=== PATIENT | female | born 1985 | race Caucasian/White ===

== ENCOUNTER 2019-11-24 05:40 | Inpatient (IN) | payer OTHER ==
[2019-11-24] MEDS ORDERED: AMPICILLIN - 2 GM in SODIUM CHLORIDE 100 ML IVPB ONE (06:32)
[2019-11-24] MEDS ORDERED: AMPICILLIN SODIUM 2 GM VIAL ONE (06:33)
[2019-11-24 06:34] LABS: BASO % 0.2 % (0-2.0); HEMATOCRIT 39.1 % (32.4-45.2); LYMPH % 7.9 % (8-40); MCH 30.3 pg (25.7-33.7); MCHC 33.3 g/dl (32.0-36.0); MEAN PLT VOLUME 8.7 fl (7.5-11.1); MONO % 2.4 % (3.8-10.2); NEUT % 89.5 % (42.8-82.8); PLATELET COUNT 363 K/MM3 (134-434); RBC 4.29 M/mm3 (3.60-5.2); RDW 16.8 % (11.6-15.6)
--- NOTE | 2019-11-24 06:36 | HP ---
Past Medical History - Admission Chief Complaint: Contractions History of Present Illness: 34yo @ 39.6wks by LMP/sono, BASSEM 11/25/19 here with contractions, LOF No VB. +FM. 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: Alzheimer's, CVA, Dementia, Migraine, Multiple Sclerosis, Peripheral Neuropathy, Parkinson's, Seizure, Syncope, TIA, Vertigo, Other Cardiovascular: No: AFIB, Aneurysm, Aortic Insufficiency, Aortic Stenosis, CAD, CHF, Deep Vein Thrombosis, HTN, Hyperlipdemia, LA, Mitral Insufficiency, Mitral Stenosis, Murmur, Pulmonary Hypertension, Other Pulmonary: No: Asthma, Bronchitis, Cancer, COPD, O2 Dependent, Pneumonia, Previously Intubated, Pulmonary Embolus, Pulmonary Fibrosis, Sleep Apnea, Other Gastrointestinal: No: Ascites, Cancer, Constipation, Crohn's Disease, Diverticulitis, Diverticulosis, Esophageal Varices, Gastritis, GERD, GI Bleed, Hemorrhoids, Hiatal Hernia, Inflamatory Bowel Disease, Irritable Bowel Disease, Pancreatitis, Peptic Ulcer Disease, Ulcerative Colitis, Other Hepatobiliary: No: Cirrhosis, Cholelithiasis, Cholecystitis, Choledocholithiasis, Hepatitis A, Hepatitis B, Hepatitis C, Other Reproductive: No: Ectopic , Endometriosis, Fibroids, PID, Polycystic Ovary Syndrome, Postmenopausal, Other ...: 3 ...Para: 2 ...Term: 2 ...: 0 ...Spon : 0 ...Induced : 0 ...Living Children: 2 ... Weeks Gestation by Dates: 39.6 ...EDC by Dates: 11/25/19 ...EDC by Sono: 11/25/19 Heme/Onc: No: Anemia, B12 Deficiency, Bleeding Disorder, Cancer, Current Chemotherapy, Current Radiation Therapy, Hemochromatosis, Hypercoaguable State, Myeloproliferative Synd, Sickle Cell Disease, Sickle Cell Trait, Thrombocytopenia, Other Infectious Disease: No: AIDS, C-Diff, Herpes Zoster, HIV, MRSA, STD's, Tuberculosis, VREF, Other Psych: No: Addictions, Anxiety, Bipolar, Depression, Panic, Psychosis, Schizophrenia, Other Musculoskeletal: No: Bursitis, Chronic low back pain, Hemiparesis, Hemiplegia, Osteoarthritis, Paraplegia, Other Rheumatology: No: Fibromyalgia, Gout, Lupus, Rheumatoid Arthritis, Sarcoidosis, Vasculitis, Other ENT: No: Allergic Rhinitis, Sinusitis, Other Dermatology: No: Basal Cell, Cellulitis, Eczema, Melanoma, Psoriasis, Squamous Cell, Other - Past Surgical History Past Surgical History: Yes: None Hx Myomectomy: No Hx Transabdominal Cerclage: No - Smoking History Smoking history: Current every day smoker Have you smoked in the past 12 months: No - Alcohol/Substance Use Hx Alcohol Use: No History of Substance Use: reports: None - Social History Usual Living Arrangement: Yes: With Spouse Do you think of yourself as: Straight/Heterosexual ADL: Independent History of Recent Travel: No Home Medications - Allergies Allergies/Adverse Reactions: Allergies Allergy/AdvReac Type Severity Reaction Status Date / Time No Known Allergies Allergy Verified 11/23/19 18:38 - Home Medications Home Medications: Ambulatory Orders Vitamins (Sjr) - 1 tab PO DAILY 11/23/19 Physical Exam - Maternity Constitutional: Yes: Well Nourished, No Distress, Calm - Abdominal Exam/OB Number of Fetuses: Single Presentation: Vertex Contractions: Yes Regularity: Regular Intensity: Mod/Strong Monitor Mode: External Heart Rate Location: [facility] Category: I Accelerations: Non-Uniform Decelerations: None - Vaginal Exam/OB Vaginal Bleeding: No Speculum Exam: No Dilatation (cm): 9.5 Effacement (%): 100 Amniotic Membrane Status: Ruptured Nitrazine Test: Positive Amniotic Fluid: Yes: Clear Presentation: Vertex/Position - Physical Exam Edema: No Imaging - Results Ultrasound: Report Reviewed Problem List - Problems (1) Precipitous delivery Code(s): O62.3 - PRECIPITATE LABOR Assessment/Plan 34yo @ 39.6wks here in labor Admit to L&D NPO, IVFs Amp for GBS positive, will not be sufficient Anticipate DICKSON Munoz MD
[2019-11-24] MEDS ORDERED: DEXTROSE 5%-LACTATED RINGERS 1,000 ML IV SCH (06:45)
[2019-11-24 06:52] LABS: INR 0.93 (0.83-1.09)
[2019-11-24] MEDS ORDERED: OXYTOCIN 30 UNITS in 0.9% NS 30 UNIT/500 ML INFUS.BAG IVPB ONE (06:57)
[2019-11-24] MEDS ORDERED: ELECTROLYTE-148 SOLN 1,000 ML IV SCH (07:00)
--- NOTE | 2019-11-24 07:01 | PN ---
Progress Note, Labor Vaginal Exam #1 Labor Exam Date: 11/24/19 Labor Exam Time: 07:00 Heart Rate (range): Cat I Dilatation: 9 Effacement (%): 100 Amniotic Membrane Status: Ruptured Presentation: Vertex/Position Station: -1 Remarks: Pt comfortable Contractions over 5mins apart, will start pitocin Anticipate DICKSON Munoz MD
[2019-11-24 07:04] VITALS: BMI 37.8
[2019-11-24 07:14] LABS: BLOOD UREA NITROGEN 7.1 mg/dL (7-18); CALCIUM 9.6 mg/dL (8.5-10.1); CREATININE 0.7 mg/dL (0.55-1.3); POTASSIUM 4.1 mmol/L (3.5-5.1)
[2019-11-24] MEDS ORDERED: OXYTOCIN 30 UNITS in 0.9% NS 30 UNIT/500 ML INFUS.BAG IVPB SCH (07:15)
[2019-11-24] MEDS ORDERED: OXYTOCIN 20 UNITS in 0.9% NS 20 UNIT/1,000 ML INFUS.BAG IV ONE ×2 (08:38→12:31)
[2019-11-24] MEDS: OXYTOCIN 20 UNITS in 0.9% NS 20 UNIT/1,000 ML INFUS.BAG IV SCH ×2 (08:43→12:35)
[2019-11-24] MEDS ORDERED: LIDOCAINE HCL 1% PRESERVATIVE FREE - 30ML VIAL ONE (08:47)
[2019-11-24] MEDS ORDERED: METHYLERGONOVINE MALEATE 0.2 MG/1 ML AMP IM PRN (09:02)
[2019-11-24] MEDS ORDERED: ACETAMINOPHEN 325 MG TABLET (FP) PO PRN (09:02)
[2019-11-24] MEDS ORDERED: BENZOCAINE 28 GM HEMORRHOIDAL OINTMENT TP PRN (09:02)
[2019-11-24] MEDS ORDERED: WITCH HAZEL 50% (TUCKS) 40 PAD/JAR PAD TP PRN (09:02)
[2019-11-24] MEDS ORDERED: BENZOCAINE 20% 57 GM BOTTLE TP PRN (09:02)
[2019-11-24] MEDS ORDERED: BISACODYL 10 MG SUPP.RECT RC PRN (09:02)
[2019-11-24] MEDS ORDERED: IBUPROFEN 600 MG TABLET (FP) PO PRN (09:02)
--- NOTE | 2019-11-24 09:02 | PN ---
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 39 weeks. No anesthesia. Spontaneous delivery of anterior shoulder and body. Nuchal x 1, delivered through and then reduced. Meconium noted just prior to delivery of head. Infant placed on maternal abdomen; cord cut and clamped by provider. Infant handed off immediately to nursing staff. Weight pending. Apgars 7/9. Spontaneous delivery of intact placenta with 3VC. Fundus firm. First degree laceration repaired after 10cc !5 lidocaine local injected into area- repaired with 2-0 chromic. Hemostasis noted. Mother and baby doing well. EBL 250ml. Yomaira Munoz MD
[2019-11-24] MEDS ORDERED: IBUPROFEN 600 MG TABLET (FP) PO ONE (11:49)
[2019-11-24] MEDS ORDERED: ACETAMINOPHEN 325 MG TABLET (FP) ONE (11:49)
[2019-11-24] MEDS: PRENATAL VITAMINS W/ FOLIC ACID TABLET (FP) PO SCH (11:55)
[2019-11-25 08:54] VITALS: BP 110/71; PULSE 60; TEMP 97.6
[2019-11-25] MEDS: PRENATAL VITAMINS W/ FOLIC ACID TABLET (FP) PO SCH (09:22)
[2019-11-25 09:40] LABS: BASO % 0.5 % (0-2.0); HEMATOCRIT 38.4 % (32.4-45.2); HEMOGLOBIN 12.5 GM/dL (10.7-15.3); LYMPH % 30.4 % (8-40); MCH 30.3 pg (25.7-33.7); MCHC 32.7 g/dl (32.0-36.0); MEAN CELL VOLUME 92.7 fl (80-96); MEAN PLT VOLUME 8.4 fl (7.5-11.1); MONO % 6.4 % (3.8-10.2); NEUT % 61.7 % (42.8-82.8); PLATELET COUNT 348 K/MM3 (134-434); RBC 4.14 M/mm3 (3.60-5.2); RDW 17.1 % (11.6-15.6); WHITE BLOOD COUNT 14.2 K/mm3 (4.0-10.0)
--- NOTE | 2019-11-25 09:41 | PN ---
Post Progress Note - Subjective Subjective: Pain controlled. No fevers/chills. . Ambulating Type of Delivery: Vital Signs: Vital Signs Temperature 97.6 F 11/25/19 08:50 Pulse Rate 60 11/25/19 08:50 Respiratory Rate 18 11/25/19 08:50 Blood Pressure 110/71 11/25/19 08:50 O2 Sat by Pulse Oximetry (%) 98 11/24/19 22:00 Uterus: Yes: Fundus below umbilicus Abdomen/GI: Yes: Abdomen soft, Tolerating PO Lochia: Yes: Rubra Lochia, amount: Small Extremities: Yes: Calves non-tender Perineum: Yes: Laceration Activity: Ambulating - Labs Labs: CBC WBC 17.0 K/mm3 (4.0-10.0) H 11/24/19 06:15 RBC 4.29 M/mm3 (3.60-5.2) 11/24/19 06:15 Hgb 13.0 GM/dL (10.7-15.3) 11/24/19 06:15 Hct 39.1 % (32.4-45.2) 11/24/19 06:15 MCV 91.0 fl (80-96) 11/24/19 06:15 MCH 30.3 pg (25.7-33.7) 11/24/19 06:15 MCHC 33.3 g/dl (32.0-36.0) 11/24/19 06:15 RDW 16.8 % (11.6-15.6) H 11/24/19 06:15 Plt Count 363 K/MM3 (134-434) 11/24/19 06:15 MPV 8.7 fl (7.5-11.1) 11/24/19 06:15 Absolute Neuts (auto) 15.2 K/mm3 (1.5-8.0) H 11/24/19 06:15 Neutrophils % 89.5 % (42.8-82.8) H 11/24/19 06:15 Lymphocytes % 7.9 % (8-40) L 11/24/19 06:15 Monocytes % 2.4 % (3.8-10.2) L 11/24/19 06:15 Eosinophils % 0.0 % (0-4.5) 11/24/19 06:15 Basophils % 0.2 % (0-2.0) 11/24/19 06:15 Nucleated RBC % 0 % (0-0) 11/24/19 06:15 Problem List - Problems (1) Precipitous delivery Code(s): O62.3 - PRECIPITATE LABOR Assessment/Plan 34yo s/p , PPD#1 Routine PP care PO pain control FU AM labs D/C to home by PPD#2 Twin Munoz MD
[2019-11-25] MEDS ORDERED: DIPHTH,PERTUSS(ACELL),TET 0.5 ML DISP.SYRIN IM ONE (10:00)
--- NOTE | 2019-11-25 10:16 | DS ---
Physical Examination Vital Signs: Vital Signs Temperature 97.6 F 11/25/19 08:50 Pulse Rate 60 11/25/19 08:50 Respiratory Rate 18 11/25/19 08:50 Blood Pressure 110/71 11/25/19 08:50 O2 Sat by Pulse Oximetry (%) 98 11/24/19 22:00 Constitutional: Yes: Well Nourished, No Distress, Calm Eyes: Yes: WNL, Conjunctiva Clear, EOM Intact HENT: Yes: WNL, Atraumatic, Normocephalic Neck: Yes: WNL, Supple, Trachea Midline Cardiovascular: Yes: WNL, Regular Rate and Rhythm Respiratory: Yes: WNL, Regular, CTA Bilaterally Gastrointestinal: Yes: WNL, Normal Bowel Sounds Musculoskeletal: Yes: WNL Extremities: Yes: WNL Edema: No Integumentary: Yes: WNL Neurological: Yes: WNL, Alert, Oriented ...Motor Strength: WNL Psychiatric: Yes: WNL Labs: CBC, BMP 11/25/19 09:12 11/24/19 06:15 Discharge Summary Problems reviewed: Yes Reason For Visit: LABOR Current Active Problems Precipitous delivery (Acute) Procedures: Principal: Hospital Course: Patient presented in labor She had an uncomplicated She met all milestones She was discharged home in stable condition Twin Munoz MD Condition: Stable - Instructions Diet, Activity, Other Instructions: Regular Diet Follow up in 4 weeks for your visit Referrals: Yomaira Munoz MD [Family Provider] - Disposition: HOME - Home Medications Comprehensive Discharge Medication List: Ambulatory Orders Vitamins (Sjr) - 1 tab PO DAILY 11/23/19 Breast Pump 1 each MC 5XD 30 Days #1 each 11/24/19 Ibuprofen 600 mg PO Q6H PRN #30 tablet 11/24/19
[2019-11-25] MEDS ORDERED: SENNOSIDES/DOCUSATE COMBO (SENNA PLUS) TABLET (UD) PO PRN (22:00)
[2019-11-26 12:04] LABS: POC NITRAZINE POS
== END 2019-11-25 15:06 | disposition home or self-care (01) | DRG 560 ==
LOC: JDEL 05:40 → JLDR 05:55 → EDBD 05:55 → J3W 15:15
PROVIDERS: ADMIT Obstetrics & Gynecology; ATTEND Obstetrics & Gynecology
PROC: 10E0XZZ Delivery of Products of Conception, External Approach (ICD-10-PCS; principal; 2019-11-24)
PROC: 0HQ9XZZ Repair Perineum Skin, External Approach (ICD-10-PCS; 2019-11-24)
DX: O62.3 Precipitate labor (principal); O69.81X0 Labor and delivery complicated by cord around neck, without compression, not applicable or unspecified; O70.0 First degree perineal laceration during delivery; O99.824 Streptococcus B carrier state complicating childbirth; Z3A.39 39 weeks gestation of pregnancy; Z37.0 Single live birth
CPT/HCPCS: 36415; 59409; 80048; 83986-QW; 85025; 85610; 85730; 86780; 86850; 86900; 86901; 90715; U0003